=== PATIENT | female | born 1970 | race American Indian/Alaskan Native ===

== ENCOUNTER 2020-07-17 20:28 | Emergency (ER) | payer SELFPAY ==
[2020-07-17 21:44] VITALS: BP 141/94
[2020-07-17] MEDS ORDERED: AMOXICILLIN/K CLAV 875/125MG TAB PO ONE (22:38)
[2020-07-17] MEDS ORDERED: IBUPROFEN 800 MG TAB PO ONE (22:38)
--- NOTE | 2020-07-17 22:58 | XRay Report ---
CHEST 2 VIEWS INDICATION: cough. COMPARISON: None FINDINGS: SUPPORT DEVICES: None. HEART: Within normal limits. LUNGS/PLEURA: Minimal streaky right basilar airspace disease with otherwise clear lungs. No pneumoth orax. ADDITIONAL FINDINGS: None. IMPRESSION: 1. Pulmonary findings as above. Signer Name: Abimael Matamoros MD Signed: 07/17/2020 10:53 PM Workstation Name: [id number]
--- NOTE | 2020-07-17 23:14 | Emergency Department Report ---
- General Chief Complaint: Upper Respiratory Infection Stated Complaint: EAR SWOLLEN/PAIN/COUGH Time Seen by Provider: 07/17/20 23:09 Source: patient Mode of arrival: Ambulatory Limitations: No Limitations - History of Present Illness MD Complaint: sore throat (In a pain for 1 to 2 days), rhinorrhea, nasal congestion -: days(s) (3) Severity: mild, moderate Quality: dull, aching Consistency: constant Improves With: nothing Worsens With: nothing Associated Symptoms: rhinorrhea, nasal congestion, cough, ear pain. denies: chest pain, shortness of breath, abdominal pain, nausea, vomiting, confusion, weight loss, epistaxis, hoarseness - Related Data Previous Rx's Medication Instructions Recorded Last Taken Type Amoxicillin/Potassium Clav 1 each PO BID #20 tablet 07/17/20 Unknown Rx [Augmentin 875-125 Tablet] Ketorolac [Toradol] 10 mg PO Q6H PRN #15 tablet 07/17/20 Unknown Rx Neomy/Polymyx B/Hc (Otic) Soln 4 drops OT TID #1 bottle 07/17/20 Unknown Rx [Cortisporin (Otic) Soln] Allergies Allergy/AdvReac Type Severity Reaction Status Date / Time No Known Allergies Allergy Unverified 07/17/20 21:48 ED Review of Systems ROS: Stated complaint: EAR SWOLLEN/PAIN/COUGH Other details as noted in HPI Comment: All other systems reviewed and negative ED Past Medical Hx - Past Medical History Previous Medical History?: Yes Hx Hypertension: Yes Hx Diabetes: Yes Additional medical history: High Cholesterol - Surgical History Past Surgical History?: No - Social History Smoking Status: Current Every Day Smoker Substance Use Type: None - Medications Home Medications: Home Medications Medication Instructions Recorded Confirmed Last Taken Type Amoxicillin/Potassium Clav 1 each PO BID #20 tablet 07/17/20 Unknown Rx [Augmentin 875-125 Tablet] Ketorolac [Toradol] 10 mg PO Q6H PRN #15 tablet 07/17/20 Unknown Rx Neomy/Polymyx B/Hc (Otic) Soln 4 drops OT TID #1 bottle 07/17/20 Unknown Rx [Cortisporin (Otic) Soln] ED Physical Exam - General Limitations: No Limitations General appearance: alert, in no apparent distress - Head Head exam: Present: atraumatic, normocephalic - Eye Eye exam: Present: normal appearance - ENT ENT exam: Present: mucous membranes moist, other (Left ear canal swollen tenderness with scant discharge tragal tenderness is noted. Airway patent mild erythema noted sinus congestion is noted.) - Neck Neck exam: Present: normal inspection - Respiratory Respiratory exam: Present: normal lung sounds bilaterally. Absent: respiratory distress, chest wall tenderness, accessory muscle use, decreased breath sounds - Cardiovascular Cardiovascular Exam: Present: regular rate, normal rhythm. Absent: systolic murmur, diastolic murmur, rubs, gallop - GI/Abdominal GI/Abdominal exam: Present: soft, normal bowel sounds - Extremities Exam Extremities exam: Present: normal inspection - Back Exam Back exam: Present: normal inspection - Neurological Exam Neurological exam: Present: alert, oriented X3 - Psychiatric Psychiatric exam: Present: normal affect, normal mood - Skin Skin exam: Present: warm, dry, intact, normal color. Absent: rash ED Course Vital Signs 07/17/20 21:38 Temperature 99.0 F Pulse Rate 101 H Respiratory 18 Rate Blood Pressure 141/94 O2 Sat by Pulse 96 Oximetry Critical care attestation.: If time is entered above; I have spent that time in minutes in the direct care of this critically ill patient, excluding procedure time. ED Disposition Clinical Impression: Otitis externa, URI (upper respiratory infection) Disposition: - TO HOME OR SELFCARE Is pt being admited?: No Does the pt Need Aspirin: No Condition: Stable Instructions: Ear Drops, Adult, Upper Respiratory Infection, Adult, Otitis Externa Prescriptions: Amoxicillin/Potassium Clav [Augmentin 875-125 Tablet] 1 each PO BID #20 tablet Neomy/Polymyx B/Hc (Otic) Soln [Cortisporin (Otic) Soln] 4 drops OT TID #1 bottle Ketorolac [Toradol] 10 mg PO Q6H PRN #15 tablet PRN Reason: Pain Referrals: PRIMARY CAREMD [Primary Care Provider] - 3-5 Days AC NORRIS MD [Staff Physician] - 3-5 Days
== END 2020-07-17 23:24 | disposition home or self-care (01) ==
LOC: ED 20:28
DX: H60.90 Unspecified otitis externa, unspecified ear (principal); J06.9 Acute upper respiratory infection, unspecified; I10 Essential (primary) hypertension; E11.9 Type 2 diabetes mellitus without complications; F17.200 Nicotine dependence, unspecified, uncomplicated; Z79.899 Other long term (current) drug therapy
CPT/HCPCS: 71046; 99283

== ENCOUNTER 2021-01-12 16:19 | Emergency (ER) | payer OTHER ==
--- NOTE | 2021-01-12 18:37 | Emergency Department Report ---
ED Extremity Problem HPI - General Chief complaint: Pain General Stated complaint: RIGHT LEG SWELLING, LEFT ARM PAIN Time Seen by Provider: 01/12/21 18:31 Source: patient Mode of arrival: Ambulatory Limitations: No Limitations - History of Present Illness Initial comments: Patient is a 50-year-old female presents emergency room complaints of right knee pain and swelling that began earlier this morning. She denies any fall or injury. She denies any calf pain or swelling down her leg. She denies any fever, nausea, vomiting, diarrhea, chest pain, shortness of breath. Past medical history of diabetes, hypertension, hyperlipidemia. No allergies to medications. She denies any hormone use, recent surgery, recent immobilization, recent travel, recent long car or plane ride. - Related Data Previous Rx's Medication Instructions Recorded Last Taken Type Amoxicillin/Potassium Clav 1 each PO BID #20 tablet 07/17/20 Unknown Rx [Augmentin 875-125 Tablet] Ketorolac [Toradol] 10 mg PO Q6H PRN #15 tablet 07/17/20 Unknown Rx Neomy/Polymyx B/Hc (Otic) Soln 4 drops OT TID #1 bottle 07/17/20 Unknown Rx [Cortisporin (Otic) Soln] Naproxen [EC-Naprosyn] 500 mg PO BID PRN #20 tablet. 01/12/21 Unknown Rx Allergies Allergy/AdvReac Type Severity Reaction Status Date / Time No Known Allergies Allergy Unverified 07/17/20 21:48 ED Review of Systems ROS: Stated complaint: RIGHT LEG SWELLING, LEFT ARM PAIN Other details as noted in HPI Comment: All other systems reviewed and negative ED Past Medical Hx - Past Medical History Previous Medical History?: Yes Hx Hypertension: Yes Hx Diabetes: Yes Additional medical history: High Cholesterol - Surgical History Past Surgical History?: No - Social History Smoking Status: Former Smoker Substance Use Type: Alcohol - Medications Home Medications: Home Medications Medication Instructions Recorded Confirmed Last Taken Type Amoxicillin/Potassium Clav 1 each PO BID #20 tablet 07/17/20 Unknown Rx [Augmentin 875-125 Tablet] Ketorolac [Toradol] 10 mg PO Q6H PRN #15 tablet 07/17/20 Unknown Rx Neomy/Polymyx B/Hc (Otic) Soln 4 drops OT TID #1 bottle 07/17/20 Unknown Rx [Cortisporin (Otic) Soln] Naproxen [EC-Naprosyn] 500 mg PO BID PRN #20 tablet. 01/12/21 Unknown Rx ED Physical Exam - General Limitations: No Limitations General appearance: alert, in no apparent distress - Head Head exam: Present: atraumatic, normocephalic - Eye Eye exam: Present: normal appearance - ENT ENT exam: Present: mucous membranes moist - Respiratory Respiratory exam: Absent: respiratory distress, accessory muscle use - Extremities Exam Extremities exam: Present: other (mild right anterior knee ttp, mild edema to the right knee, no edema to the lower RLE, no calf ttp, negative homans sign, FROM of the RLE, pain with flexion of the right knee, no deformity, neurovascularly intact) - Neurological Exam Neurological exam: Present: alert, oriented X3 - Psychiatric Psychiatric exam: Present: normal affect, normal mood - Skin Skin exam: Present: warm, dry, intact ED Course Vital Signs 01/12/21 18:00 Temperature 98.2 F Pulse Rate 68 Respiratory 16 Rate Blood Pressure 147/92 [Left] O2 Sat by Pulse 100 Oximetry ED Medical Decision Making - Radiology Data Radiology results: report reviewed Ordering Physician: RENARD BENITEZ Date of Service: 01/12/21 Procedure(s): XR knee 3V RT Accession Number(s): [id number] cc: RENARD BENITEZ Fluoro Time In Minutes: HISTORY:right knee pain/swelling COMPARISON: None. TECHNIQUE: AP lateral and obliques views were obtained FINDINGS: Bones: No fracture or dislocation. Joint spaces: Maintained. Soft tissues: Suprapatellar effusion Additional findings: None. IMPRESSION: 1. Suprapatellar effusion. Signer Name: Silas Dickerson MD Signed: 01/12/2021 6:58 PM Workstation Name: [id number] Transcribed By: WG Dictated By: Silas Dickerson MD Electronically Authenticated By: Silas Dickerson MD Signed Date/Time: 01/12/211857 DD/ 57 TD/TT: - Medical Decision Making Patient is a 50-year-old female presents emergency room complaints of right knee pain and swelling that began earlier this morning. She denies any fall or injury. She denies any calf pain or swelling down her leg. She denies any fever, nausea, vomiting, diarrhea, chest pain, shortness of breath. Past medical history of diabetes, hypertension, hyperlipidemia. No allergies to medications. She denies any hormone use, recent surgery, recent immobilization, recent travel, recent long car or plane ride. Vitals are stable. On exam: mild right anterior knee ttp, mild edema to the right knee, no edema to the lower RLE, no calf ttp, negative homans sign, FROM of the RLE, pain with flexion of the right knee, no deformity, neurovascularly intact. X-ray right knee: 1. Suprapatellar effusion. Discussed all results with patient answer questions. Patient placed in Brien wrap by me and remained neurovascularly intact. Patient given prescription for naproxen. Advised patient Please take medication as prescribed. Do not wear Brien bandage too tightly and do not wear at night while sleeping. May use ice for 15 minutes at a time, rest, elevation of the leg. Follow-up with orthopedic doctor. Return to emergency room for new or worsening symptoms. Critical care attestation.: If time is entered above; I have spent that time in minutes in the direct care of this critically ill patient, excluding procedure time. ED Disposition Clinical Impression: Suprapatellar effusion of knee Knee pain Qualifiers: Chronicity: acute Laterality: right Qualified Code(s): M25.561 - Pain in right knee Disposition: DC- TO HOME OR SELFCARE Is pt being admited?: No Does the pt Need Aspirin: No Condition: Stable Instructions: Acute Knee Pain, Adult, Knee Effusion Additional Instructions: Please take medication as prescribed. Do not wear Brien bandage too tightly and do not wear at night while sleeping. May use ice for 15 minutes at a time, rest, elevation of the leg. Follow-up with orthopedic doctor. Return to emergency room for new or worsening symptoms. Prescriptions: Naproxen [EC-Naprosyn] 500 mg PO BID PRN #20 tablet.dr GROSSMAN Reason: pain/swelling Referrals: STEPHANIE LEON MD [Staff Physician] - 3-5 Days [facility] [Provider Group] - 3-5 Days Time of Disposition: 19:17 Print Language: JAPANESE
--- NOTE | 2021-01-12 19:03 | XRay Report ---
HISTORY:right knee pain/swelling COMPARISON: None. TECHNIQUE: AP lateral and obliques views were obtained FINDINGS: Bones: No fracture or dislocation. Joint spaces: Maintained. Soft tissues: Suprapatellar effusion Additional findings: None. IMPRESSION: 1. Suprapatellar effusion. Signer Name: Silas Dickerson MD Signed: 01/12/2021 6:58 PM Workstation Name: [id number]
[2021-01-12 20:49] VITALS: BP 147/92
== END 2021-01-12 19:30 | disposition home or self-care (01) ==
LOC: ED 16:19
DX: M25.461 Effusion, right knee (principal); I10 Essential (primary) hypertension; E11.9 Type 2 diabetes mellitus without complications; E78.00 Pure hypercholesterolemia, unspecified; Z87.891 Personal history of nicotine dependence; Z79.899 Other long term (current) drug therapy
CPT/HCPCS: 99283

== ENCOUNTER 2021-01-12 19:32 | Emergency (ER) | payer SELFPAY | END 2021-01-12 23:00 | disposition left against medical advice (07) | LOC: ED 19:32 | DX: M79.605 Pain in left leg (principal); R22.41 Localized swelling, mass and lump, right lower limb; Z53.21 Procedure and treatment not carried out due to patient leaving prior to being seen by health care provider ==